=== PATIENT | female | born 1945 | race Caucasian/White ===

== ENCOUNTER → 2021-02-15 09:44 | Outpatient (CLI) | payer MEDICARE, SELFPAY ==
--- NOTE | 2021-02-15 09:52 | ECHOD_ITS ---
Reason For Study: SOB Procedure This was a 2D Doppler, Color Flow transthoracic echocardiogram. Exam performed in department. Left Ventricle Normal LV size. Left ventricular systolic function is normal. The estimated ejection fraction is 60 %. Stage 1 diastolic dysfunction. No regional wall motion abnormalities noted. Right Ventricle Normal RV size. Normal systolic function. Atria Normal left atrium. Normal right atrium. Mitral Valve There is mild to moderate mitral annular calcification. Trivial eccentric mitral valve insufficiency. Tricuspid Valve Normal tricuspid valve. Mild tricuspid valve insufficiency. Pulmonary artery systolic pressure is 25 mmHg. Aortic Valve Trisinus/trileaflet aortic valve. Mild focal aortic valve calcification. Pulmonic Valve Normal pulmonic valve. Great Vessels Normal aortic root. The pulmonary artery is normal size. Normal inferior vena cava. Pericardium/Pleural No pericardial effusion. MMode/2D Measurements & Calculations LVIDd: 4.2 cm IVSd: 1.4 cm Ao root diam: 3.0 cm LVIDs: 2.5 cm LVPWd: 0.87 cm RVDd: 3.2 cm FS: 40.3 % LAV(MOD-bp): 50.4 ml LA A4 area: 19.2 cm2 LA dimension(2D): 3.3 cm LAV(MOD-bp) Indexed: 24.1 ml/m2 LAV(MOD-sp2): 45.0 ml LAV(MOD-sp4): 56.1 ml RA A4 area: 13.1 cm2 Doppler Measurements & Calculations MV E max kenneth: 101.5 cm/sec Lat Peak E' Kenneth: 5.5 cm/sec Med Peak E' Kenneth: 3.9 cm/sec MV A max kenneth: 137.1 cm/sec E/E' lat: 18.5 E/E' med: 25.7 MV E/A: 0.74 MV V2 max: 139.7 cm/sec MV P1/2t max kenneth: 108.9 cm/sec Ao V2 max: 150.2 cm/sec MV max P.8 mmHg MV P1/2t: 116.7 msec Ao max P.0 mmHg MV V2 mean: 69.4 cm/sec MV dec slope: 273.5 cm/sec2 MV mean P.3 mmHg MVA(P1/2t): 1.9 cm2 MV V2 VTI: 44.6 cm LV V1 max: 119.9 cm/sec PA V2 max: 99.0 cm/sec TR max kenneth: 233.8 cm/sec LV V1 max P.8 mmHg TR max P.9 mmHg ECHO/Echo Complete Interpretation Summary Normal LV size. Left ventricular systolic function is normal. The estimated ejection fraction is 60 %. There is mild to moderate mitral annular calcification. Stage 1 diastolic dysfunction. Pulmonary artery systolic pressure is 25 mmHg. Ordering Physician: Phill Jones Referring Physician: Phill Jones V Performed By: Bev Johnson, ZAIRA
== END ==
PROVIDERS: PCP Family Medicine; Referring Provider Internal Medicine Pulmonary Disease; Visit Provider Internal Medicine Pulmonary Disease
DX: R06.00 Dyspnea, unspecified (principal)
CPT/HCPCS: 93306

== ENCOUNTER → 2022-06-01 | Outpatient (CLI) | payer MEDICARE, SELFPAY ==
--- NOTE | 2022-06-01 | MISC_PTH ---
PATIENT: LARISSA CASTANO LOC: RD U#:[id number] AGE/SX: 77/F ROOM: RE06/01/[address]: Dr. Lisbeth Donovan DPM : 1945 BED: DIS: 06/01/2022 SPEC #: [id number] RECD: 06/01/22 12:24 STATUS: ARABELLA JEANETTE #: [id number] JUANCHO: 06/01/22 00:[address]: Lisbeth Donovan DEPT: SURGICAL PATHOLOGY RECD BY: Nacho Mccarthy ENTERED: 06/04/22 12:25 SP TYPE: [facility] [place] OTHR DR: Dr. Sahra Ellington DO Tissues: Toe, NOS Procedures: Surgery Specimen Level II HEADER OPERATION: Not noted PRE-OP DIAGNOSIS: Gout TISSUE SUBMITTED: Right third toe crystal analysis MICROSCOPIC DIAGNOSIS Right third toe crystal analysis (crush prep): Monosodium urate crystals (gout crystals) are present. AM:edmundo 06/04/2022 MICROSCOPIC DESCRIPTION Slides are reviewed. GROSS DESCRIPTION Received fresh for microscopic examination labeled with the patient's name is a specimen designated right third toe crystal analysis. The specimen consists of an irregular fragment of whitish-renee material measuring 0.2 x 0.1 x <0.1 cm. The specimen is smeared onto slides and examined microscopically under polarized microscopy. / AM:edmundo 06/04/2022 TC:5 CPT: 48093
[2022-06-01 16:56] LABS: M R Staph aureus DNA By PCR Negative (Negative); Probe Check PASS; Specimen Processing Control PASS; Staph aureus DNA By PCR NEGATIVE (Negative)
== END | disposition home or self-care (01) ==
PROVIDERS: PCP Family Medicine; Visit Provider Podiatrist
DX: L03.90 Cellulitis, unspecified (principal); M10.9 Gout, unspecified
CPT/HCPCS: 87070; 87075; 87205; 87640; 88302